=== PATIENT | female | born 1975 | race Caucasian/White ===

== ENCOUNTER 2018-11-21 17:19 | Emergency (ER) | payer MEDICAID ==
[~2018-11-21] VITALS: Ht 165.1 cm
[~2018-11-21 17:19] MED LIST: TRAM-297 PO
[2018-11-21] MEDS ORDERED: LIDOCAINE W/ EPINEPHRINE 2% INJ 20ML VIAL ONE (23:55)
[2018-11-22] MEDS ORDERED: ACETAMINOPHEN/CODEINE#3 (300/30mg) TAB PO ONE
[2018-11-22] MEDS ORDERED: BACLOFEN 10 MG TAB PO ONE
[2018-11-22 00:11] VITALS: BP 132/74
[2018-11-22] MEDS ORDERED: BACITRACIN TOP OINT 1 UD PKG TOP ONE (00:15)
== END 2018-11-22 00:34 | disposition home or self-care (01) ==
LOC: ER 17:19 → EDBD 17:19 → ER 11-22 00:34
DX: S13.4XXA Sprain of ligaments of cervical spine, initial encounter (principal); S01.81XA Laceration without foreign body of other part of head, initial encounter; Z88.0 Allergy status to penicillin; Z88.1 Allergy status to other antibiotic agents; Z88.5 Allergy status to narcotic agent; Z79.899 Other long term (current) drug therapy; V49.9XXA Car occupant (driver) (passenger) injured in unspecified traffic accident, initial encounter; Y93.89 Activity, other specified; Y99.8 Other external cause status; Y92.488 Other paved roadways as the place of occurrence of the external cause
CPT/HCPCS: 12015; 70450; 72040; 72125